=== PATIENT | female | born 1995 | race Caucasian/White ===

== ENCOUNTER 2021-10-29 10:17 | Inpatient (IN) | payer BC ==
[2021-10-29] VITALS (44 sets, daily range): BP systolic 106–151; BP diastolic 55–93; PULSE 62–100; TEMP 97.6–98.4
[~2021-10-29] VITALS: Ht 172.7 cm; Wt 77.7 kg
[~2021-10-29 10:17] MED LIST: CLARITIN 1010 MG/TAB PO; IBU600 MG PO; PRENATAL MVI PO
[2021-10-29 13:29] LABS: BASO % 0.3 % (0.0-2.0); EOS # 0.2 K/mm3 (0.0-0.7); EOS % 2.3 % (0.0-4.0); GRAN # 6.4 K/mm3 (1.4-6.5); HEMATOCRIT 37.4 % (37.0-47.0); HEMOGLOBIN 13.2 g/dl (12.5-16.0); LYMPH # 2.1 K/mm3 (1.2-3.4); LYMPH % 21.2 % (20.0-51.0); MEAN CELL VOLUME 90 fl (80.0-100.0); MEAN CORPUSCULAR HEMOGLOBIN 32 pg (27-31); MEAN CORPUSCULAR HGB CONC 35 g/dl (33.0-37.0); MEAN PLATELET VOLUME 10.7 fl (7.4-10.4); MONO % 9.8 % (1.7-9.3); PLATELET COUNT 237 K/mm3 (130-400); RED BLOOD COUNT 4.15 M/mm3 (4.10-5.30); REDCELL DISTRIBUTION WIDTH-CV 11.9 % (11.5-14.5)
[2021-10-30] VITALS (7 sets, daily range): BP systolic 102–126; BP diastolic 50–80; PULSE 60–85; TEMP 97.5–98.2
[2021-10-31] MEDS ORDERED: MOTRIN 600600 MG/TAB PO (07:32)
[2021-10-31 07:45] VITALS: BP 129/81; PULSE 71; TEMP 97.6
== END 2021-10-31 11:10 | disposition home or self-care (01) | DRG 807 ==
LOC: OB 10:17 → LDR 12:24 → OB 17:56 → LDR 22:48 → OB 10-30 01:00
PROVIDERS: ADMIT Obstetrics & Gynecology
PROC: 10E0XZZ Delivery of Products of Conception, External Approach (ICD-10-PCS; principal; 2021-10-29)
PROC: 10907ZC Drainage of Amniotic Fluid, Therapeutic from Products of Conception, Via Natural or Artificial Opening (ICD-10-PCS; 2021-10-29)
PROC: 3E033VJ Introduction of Other Hormone into Peripheral Vein, Percutaneous Approach (ICD-10-PCS; 2021-10-29)
DX: O36.5930 Maternal care for other known or suspected poor fetal growth, third trimester, not applicable or unspecified (principal); Z37.0 Single live birth; O76 Abnormality in fetal heart rate and rhythm complicating labor and delivery; O71.89 Other specified obstetric trauma; Z23 Encounter for immunization; Z3A.40 40 weeks gestation of pregnancy
CPT/HCPCS: J2405; J2590; J7120